=== PATIENT | female | born 1960 | race Caucasian/White ===

== ENCOUNTER 2017-11-19 16:40 | Observation (INO) | payer OTHER ==
[~2017-11-19] VITALS: Ht 172.7 cm; Wt 88.5 kg
[~2017-11-19 16:40] MED LIST: AUGMENTIN 875875 MG PO
[2017-11-19 17:01] LABS: ABSOLUTE BASOPHIL COUNT 0 /CUMM (0.0-0.2); ABSOLUTE EOSINOPHIL COUNT 0.1 /CUMM (0.0-0.7); ABSOLUTE GRANULOCYTE CT 6.5 /CUMM (1.4-6.5); ABSOLUTE LYMPH COUNT 2.2 /CUMM (1.2-3.4); ABSOLUTE MONOCYTE COUNT 0.5 /CUMM (0.10-0.60); BASOPHIL % 0.4 % (0.0-2.0); EOSINOPHIL % 0.6 % (0-5); GRANULOCYTE % 70.1 % (42.2-75.2); HEMATOCRIT 38.3 % (37-47); MEAN CORPUSCULAR HGB 30.3 PG (27.0-31.0); MEAN CORPUSCULAR HGB CONC 33.2 G/DL (33.0-37.0); MEAN CORPUSCULAR VOLUME 91.3 FL (81.0-99.0); MEAN PLATELET VOLUME 7.8 FL (7.4-10.4); PLATELET COUNT 235 /CUMM (130-400); RBC DISTRIBUTION WIDTH 14.3 % (11.5-14.5); WHITE BLOOD CELL COUNT 9.3 /CUMM (4.8-10.8)
--- NOTE | 2017-11-19 17:29 | ED GI/GU/ABDOMINAL COMPLAINT ---
History of Present Illness General Chief Complaint: General Adult Stated Complaint: MONALISA PÉREZ FOR GALLSTONES Source: patient Exam Limitations: no limitations Vital Signs & Intake/Output Vital Signs & Intake/Output Vital Signs Date Time Temp Pulse Resp B/P B/P Pulse O2 O2 Flow FiO2 Mean Ox Delivery Rate 11/19 2141 98.5 89 18 140/85 94 Room Air 11/19 1957 98.7 90 18 134/76 97 Room Air 11/19 1855 98.8 77 18 94/57 100 Room Air 11/19 1853 Room Air 11/19 1643 100.4 92 18 136/87 99 Room Air Room Air Allergies Uncoded Allergies: MOLD (UNKNOWN 08/23/12) Reconcile Medications Amoxicillin/Clavulanate Potass (Amox-Clav 875-125 MG Tablet) 875 MG-125 MG TABLET 1 TAB PO BID INFN Triage Note: PT TO ED WITH C/O UPPER ABD PAIN AND BACK PAIN, WENT TO DR PÉREZ HAD CT SCAN AND SENT IN FOR GALL STONES. Triage Nurses Notes Reviewed? yes ? N Is pt currently ? No Onset: Abrupt Duration: day(s): (5), constant, continues in ED Timing: recent history Quality/Severity: moderate, sharpness, severe Location: right upper quadrant Radiation: no radiation Activities at Onset: none No Modifying Factors: none HPI: 57-year-old female comes into the emergency room with complaints of upper abdominal pain and bilateral back pain. Since his been going on for the past 5 days. Some subjective fevers and chills. No vomiting. Nothing seems to make the symptoms better. She went to see her primary care doctor who did blood work and sent her for an outpatient CAT scan which showed gallstones and possible infection. She was sent in for further evaluation. (Ace Porter) Past History Travel History Traveled to [place] past 21 day No Medical History Any Pertinent Medical History? 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 No (Ace Porter) Review of Systems Review of Systems Constitutional: Reports: see HPI. EENTM: Reports: no symptoms. Respiratory: Reports: no symptoms. Cardiovascular: Reports: no symptoms. GI: Reports: see HPI. Genitourinary: Reports: no symptoms. Musculoskeletal: Reports: no symptoms. Skin: Reports: no symptoms. Neurological/Psychological: Reports: no symptoms. Hematologic/Endocrine: Reports: no symptoms. Immunologic/Allergic: Reports: no symptoms. All Other Systems: Reviewed and Negative (Ace Porter) Physical Exam Physical Exam General Appearance: well developed/nourished, alert, awake, mild distress Head: atraumatic, normal appearance Eyes: Bilateral: normal appearance. Ears, Nose, Throat, Mouth: hearing grossly normal, moist mucous membrane Neck: normal inspection Respiratory: normal breath sounds, no respiratory distress Cardiovascular: regular rate/rhythm Gastrointestinal: soft, tenderness (ruq) Back: normal inspection Extremities: normal range of motion Neurologic/Psych: awake, alert, oriented x 3, normal gait, normal mood/affect Core Measures ACS in differential dx? No Sepsis Present: No Sepsis Focused Exam Completed? No (Ace Porter) Progress Differential Diagnosis: appendicitis, cholecystitis, diverticulitis, gastritis, pancreatitis, PUD/GERD, UTI/pyelo Plan of Care: Orders Procedure Date/time Status Nothing by Mouth 11/20 B Active HEPATIC FUNCTION PANEL 11/20 0600 Active CBC WITHOUT DIFFERENTIAL 11/20 0600 Active BASIC ELECTROLYTES PLUS BUN&CR 11/20 0600 Active Pathway - chart 11/19 1941 Active Patient Data 11/19 1941 Active Code Status 11/19 1941 Active Code Status 11/19 1919 Complete ED Holding Orders 11/19 1859 Active Vital Signs 11/19 1859 Active Code Status 11/[address] in observation 11/19 1858 Active Add-on Test (ER Only) 11/19 1723 Active PARTIAL THROMBOPLASTIN TIME 11/19 1652 Complete PROTHROMBIN TIME 11/19 1652 Complete TYPE & SCREEN (NOT X-MATCH) 11/19 1652 Complete URINALYSIS 11/19 1649 Complete LIPASE 11/19 1649 Complete COMPREHENSIVE METABOLIC PANEL 11/19 1649 Complete CBC WITHOUT DIFFERENTIAL 11/19 1649 Complete AMYLASE 11/[address] in observation 11/19 UNK Active VTE Mechanical Prophylaxis 11/19 UNK Active Vital Signs 11/19 UNK Active Intake & Output 11/19 UNK Active Activity/Ambulation 11/19 UNK Active Current Medications Sig/Florin Start time Last Medication Dose Stop Time Status Admin Ampicillin Sodium/ 1,500 MG Q6 11/19 2359 AC Sulbactam Sodium (Unasyn) Sodium Chloride 100 ML (Normal Saline 0.9%) Heparin Sodium 5,000 UNIT Q8 11/19 2199 AC (Porcine) Hydromorphone HCl 0.5 MG Q3P PRN 11/19 1944 AC (Dilaudid) Hydromorphone HCl 1 MG Q3P PRN 11/19 1944 AC (Dilaudid) Ondansetron HCl 4 MG Q6-PRN PRN 11/19 1944 AC (Zofran) Acetaminophen 650 MG Q6PRN PRN 11/19 1929 AC (Tylenol) Dextrose/Sodium 1,000 ML .Q8H 11/19 193 AC 11/19 Chloride 2038 (D5W-1/2 Normal Saline 1000ML) Sodium Chloride 1,000 ML ONCE ONE 11/19 174 AC 11/19 (Normal Saline 0.9%) 11/20 0024 1811 Laboratory Tests 11/19/171948: Urine Color YEL, Urine Clarity CLEAR, Urine pH 6.5, Ur Specific [place] <= 1.005 , Urine Protein NEG, Urine Ketones NEG, Urine Nitrite NEG, Urine Bilirubin NEG, Urine Urobilinogen 0.2, Ur Leukocyte Esterase NEG, Ur Microscopic SEDIMENT EXAMINED, Urine RBC RARE, Urine WBC RARE, Ur Epithelial Cells FEW, Urine Hemoglobin TRACE-INTACT, Urine Glucose NEG 11/19/17 1652: Anion Gap 16, Estimated GFR > 60, BUN/Creatinine Ratio 17.1, Glucose 94, Calcium 9.3, Total Bilirubin 0.4, AST 17, ALT 28, Alkaline Phosphatase 84, Total Protein 7.6, Albumin 4.5, Globulin 3.1, Albumin/Globulin Ratio 1.5, Amylase 40, Lipase 54, PT 12.6 H, INR 1.20 H, APTT 34, CBC w Diff NO MAN DIFF REQ, RBC 4.20, MCV 91.3, MCH 30.3, RDW 14.3, MPV 7.8, Gran % 70.1, Lymphocytes % 23.7, Monocytes % 5.2, Eosinophils % 0.6, Basophils % 0.4, Absolute Granulocytes 6.5, Absolute Lymphocytes 2.2, Absolute Monocytes 0.5, Absolute Eosinophils 0.1, Absolute Basophils 0, PUBS MCHC 33.2 Diagnostic Imaging: Viewed by Me: Ultrasound. Discussed w/RAD: Ultrasound. Radiology Impression: PATIENT: PAXTON CALDERA PRESENT AGE: 57 PATIENT ACCOUNT NO: [id number] : 62 LOCATION: [facility] ORDERING PHYSICIAN: Ky Chen DO SERVICE DATE: 11/19/17 EXAM TYPE: US - US-LIMITED ABDOMEN EXAMINATION: US ABDOMEN LIMITED CLINICAL INFORMATION: Right upper quadrant pain. COMPARISON: CT scan abdomen pelvis 11/19 TECHNIQUE: Real-time imaging of the right upper quadrant abdominal viscera. Color Doppler exam used. FINDINGS: PANCREAS: Normal. LIVER: There are hepatic cysts. No suspicious liver lesions. The liver demonstrates normal size, contour and echogenicity. There is no intrahepatic biliary duct dilatation. GALLBLADDER: Gallstones within the gallbladder. Gallbladder wall is thickened measuring 0.7 cm. Positive ultrasound García's sign. Findings consistent with an acute cholecystitis. COMMON BILE DUCT: Mildly dilated in caliber measuring 0.7 cm in diameter. No stones seen in the duct. RIGHT KIDNEY: Normal. No hydronephrosis. No renal calculi or focal parenchymal lesions. The kidney measures 11.4 cm in maximum dimension. FREE FLUID: None. IMPRESSION: Cholelithiasis. Gallbladder wall thickening with positive ultrasound García's sign. Findings consistent with an acute cholecystitis. The common duct diameter is mildly prominent measuring 0.7 cm. No intrahepatic bile duct dilatation. 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 <Electronically signed in Other Vendor System> SIGNED BY: Onesimo Torres MD 11/19/171758 Initial ED EKG: none (Ace Porter) Departure Departure Disposition: STILL A PATIENT Condition: Stable Clinical Impression Primary Impression: Acute cholecystitis Referrals: Missy ISBELL,Jannie (PCP/Family) Departure Forms: Customer Survey General Discharge Information Observation Note Spoke With: Anum ISBELL,Jean Claude N. Physician Advisor Notified: SABINA ISBELL,KALPANA Nunn Place Patient In: Non-ED OBS Care Area Rationale for Observation: My rational for observation is as follows . Patient will require IV antibiotics. IV pain control. Surgery tomorrow. High risk. Medically not safe for discharge. (Ace Porter) PA/ADVISOR [employer] Co-Sign Statement Statement: ED Attending supervision documentation- [X] I saw and evaluated the patient. I have also reviewed all the pertinent lab results and diagnostic results. I agree with the findings and the plan of care as documented in the PA's/ADVISOR [employer]'s documentation. [X] I have reviewed the ED Record and agree with the PA's/AD[employer]'s documentation. [] Additions or exceptions (if any) to the PAs/ADVIS[employer]'s note and plan are summarized below: [PT IS HAVING ONGOING PAIN AND ACUTE FRANK. SHE WILL BE PLACED IN OBS AND WILL GO TO THE OR TOMORROW, IV PAIN CONTROL, IV ABX.] (Sabina ISBELL,Kalpana Nunn) Critical Care Note Critical Care Note Critical Care Time: 30-74 min (35) (Ace Porter)
[2017-11-19 17:51] LABS: PT 12.6 SEC (9.4-12.5); PTT 34 SEC (25-37)
--- NOTE | 2017-11-19 17:59 | ULTRASOUND REPORT ---
EXAMINATION: US ABDOMEN LIMITED CLINICAL INFORMATION: Right upper quadrant pain. COMPARISON: CT scan abdomen pelvis 11/19/2017 TECHNIQUE: Real-time imaging of the right upper quadrant abdominal viscera. Color Doppler exam used. FINDINGS: PANCREAS: Normal. LIVER: There are hepatic cysts. No suspicious liver lesions. The liver demonstrates normal size, contour and echogenicity. There is no intrahepatic biliary duct dilatation. GALLBLADDER: Gallstones within the gallbladder. Gallbladder wall is thickened measuring 0.7 cm. Positive ultrasound García's sign. Findings consistent with an acute cholecystitis. COMMON BILE DUCT: Mildly dilated in caliber measuring 0.7 cm in diameter. No stones seen in the duct. RIGHT KIDNEY: Normal. No hydronephrosis. No renal calculi or focal parenchymal lesions. The kidney measures 11.4 cm in maximum dimension. FREE FLUID: None. IMPRESSION: Cholelithiasis. Gallbladder wall thickening with positive ultrasound García's sign. Findings consistent with an acute cholecystitis. The common duct diameter is mildly prominent measuring 0.7 cm. No intrahepatic bile duct dilatation.
--- NOTE | 2017-11-19 19:18 | Admission Core Measures ---
Acute Coronary Syndrome (CM) ACS Core Measures Acute Coronary Syndrome Diagnosis No Congestive Heart Failure (NEW) CHF Core Measures Congestive Heart Failure Diagnosis No Cerebrovascular Accident (NEW) CVA Core Measures CVA/TIA Diagnosis No Venous Thromboembolism VTE Core Teresa (View Protocol) VTE Risk Factors Age>40 No Mechanical VTE Prophylaxis d/t N/A MechProphylax Ordered No VTE Pharm Prophylaxis d/t NA PharmProphylax ordered Problem List As ranked by this Provider includes Assessment & Plan 1. Acute cholecystitis HOME MEDS Home Med List Amoxicillin/Clavulanate Potass (Amox-Clav 875-125 MG Tablet) 875 MG-125 MG TABLET 1 TAB PO BID INFN
--- NOTE | 2017-11-19 22:20 | History & Physical Pre-Op ---
General Information and HPI History of Present Illness: CC: abdominal pain HPI: Otherwise healthy 57-year-old nondiabetic nonsmoker comes to the ER with 5 days of initially back pain which now is more in the front on the right side she said it started near the kidney first time pain like this its constant but somewhat relieved with IV analgesics until little worse on movement positioning in the stretcher she's had 2 C-sections no known relation to foods though she admits she likes cheese and had empanada a few days ago associated with nausea, no diarrhea ine day had sweats, no fevers no particular darkening of urine (ie iced tea) or lightening / loose stools (wienberg), no FHx of gallbladder problems. Otherwise no changes bowel habits, weight or appetite. I've reviewed the [facility]. No history of GERD, PUD, bleeding problems, heart disease or issues with anesthesia. Past surgical history C-sections family history no diabetes cancer there is a family history of asthma Allergies/Medications Allergies: Uncoded Allergies: MOLD (UNKNOWN 08/23/12) Home Med list Amoxicillin/Clavulanate Potass (Amox-Clav 875-125 MG Tablet) 875 MG-125 MG TABLET 1 TAB PO BID INFN Escitalopram Oxalate 20 MG TABLET 20 MG PO 0800 ANXIETY (Reported) Trazodone HCl 100 MG TABLET 100 MG PO NIGHT ANXIETY (Reported) Zolpidem Tartrate 10 MG TABLET 10 MG PO NIGHT SLEEP (Reported) Past History Medical History Neurological: NONE EENT: NONE Cardiovascular: NONE Respiratory: NONE Gastrointestinal: NONE Hepatic: NONE Renal: NONE Musculoskeletal: NONE Psychiatric: anxiety Endocrine: NONE Blood Disorders: NONE 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 Tetanus Vaccine: 08/21/14 Surgical History Pertinent Surgical History: (2) Past Family/Social History Psychosocial History ETOH Use: denies use Illicit Drug Use: denies illicit drug use Review of Systems Review of Systems: Constitutional: No fever, sweats or weight loss ENMT: No sore throat Cardiovascular: No chest pain, palpitations or leg swelling Respiratory: No shortness of breath, cough, or sputum or dyspnea on exertion GI: No GERD or bleeding per rectum : No dysuria or hematuria Musculoskeletal: No new muscle weakness, bone or joint pain Skin / Breast: No jaundice, rashes or itching Psychiatric: No history of drug or alcohol abuse no depression or anxiety Hematologic / lymphatic system: No problems with excessive bleeding, bruising, or blood clots Exam & Diagnostic Data Last 24 Hrs of Vital Signs/I&O I reviewed Vital Signs Date Time Temp Pulse Resp B/P B/P Pulse O2 O2 Flow FiO2 Mean Ox Delivery Rate 11/192 98.5 89 18 140/85 94 Room Air 11/19 1957 98.7 90 18 134/76 97 Room Air 11/19 1855 98.8 77 18 94/57 100 Room Air 11/194 Room Air 11/19 1643 100.4 92 18 136/87 99 Room Air Room Air Physical Exam: Constitutional: pleasant, no acute distress, conversant Eyes: sclera anicteric ENMT: ears and nose atraumatic, moist mucous membranes, good dentition, no lip lesions Neck: Supple, trachea is midline, no cervical or supraclavicular adenopathy and no palpable thyromegaly Cardiovascular: S1, S2, no murmurs, no peripheral edema Respiratory: clear to auscultation with normal respiratory effort and no intercostal retractions GI: abdomen soft, right upper quadrant tenderness, nondistended, no palpable hepatosplenomegaly Extremities / lymphatics: symmetrically warm, free range of motion no peripheral edema, no cervical, supraclavicular, axillary, or inguinal adenopathy Musculoskeletal: Did not evaluate gait and station, no digital cyanosis, good muscle strength and tone no atrophy, motor grossly 5 out of 5 throughout Skin: no jaundice, no rashes warm, nondiaphoretic, no areas of erythema or induration Psychiatric: mood and affect are appropriate and alert and oriented to person place and time Last 24 Hrs of Labs/Merrick: I reviewed Laboratory Tests 11/19/171948: Urine Color YEL, Urine Clarity CLEAR, Urine pH 6.5, Ur Specific [place] <= 1.005 , Urine Protein NEG, Urine Ketones NEG, Urine Nitrite NEG, Urine Bilirubin NEG, Urine Urobilinogen 0.2, Ur Leukocyte Esterase NEG, Ur Microscopic SEDIMENT EXAMINED, Urine RBC RARE, Urine WBC RARE, Ur Epithelial Cells FEW, Urine Hemoglobin TRACE-INTACT, Urine Glucose NEG 11/19/17 1652: Anion Gap 16, Estimated GFR > 60, BUN/Creatinine Ratio 17.1, Glucose 94, Calcium 9.3, Total Bilirubin 0.4, AST 17, ALT 28, Alkaline Phosphatase 84, Total Protein 7.6, Albumin 4.5, Globulin 3.1, Albumin/Globulin Ratio 1.5, Amylase 40, Lipase 54, PT 12.6 H, INR 1.20 H, APTT 34, CBC w Diff NO MAN DIFF REQ, RBC 4.20, MCV 91.3, MCH 30.3, RDW 14.3, MPV 7.8, Gran % 70.1, Lymphocytes % 23.7, Monocytes % 5.2, Eosinophils % 0.6, Basophils % 0.4, Absolute Granulocytes 6.5, Absolute Lymphocytes 2.2, Absolute Monocytes 0.5, Absolute Eosinophils 0.1, Absolute Basophils 0, PUBS MCHC 33.2 Assessment/Plan Assessment/Plan: I reviewed today's ultrasound and CT scan on PACS myself which shows a thickened gallbladder with stones, no obvious stones in duct on CT My impression is symptomatic gallstones. The story is typical, except you'd expect leukocytosis after 5 days of seemingly constant pain. The current standard of care is removal of the gallbladder laparoscopically, preferably not emergently. Once they become symptomatic, gallstones can lead to complications such as cholecystitis, pancreatitis and cholangitis and rarely others, her story does not have hints of this but we'll have to monitor this low -grade temp, she does have acute cholecystitis. More workup is not needed but we will get a preoperative labs including LFTs. I explained the nature and possibility of retained stones, and rarely, persistent postoperative diarrhea. I lesa a diagram illustrating how the stones cause problems and how the anatomy and inflammation can make the surgery more difficult, sometimes requiring an open procedure, and rarely to repair a bile duct injury leading to significant morbidity and even mortality. This in our practice is exceedingly rare, but other more common risks were also discussed such as infection, injury to other surrounding structures such as bowel and blood vessels. We also discussed the potential risks, benefits and alternatives to the procedure and surgery in general, issues that included but were not limited to, anesthetic risks hemorrhage requiring transfusion, the risk of transfusion itself, infection, heart attack, stroke, . As Ranked By This Provider Problem List: 1. Acute cholecystitis
[2017-11-19] MEDS ORDERED: ZOLPIDEM TARTRA10 M1 PO (22:36)
[2017-11-19] MEDS ORDERED: TRAZODONE HCL100 M1 PO (23:11)
[2017-11-19] MEDS ORDERED: ESCITALOPRAM OX20 MG PO (23:12)
[2017-11-20 07:03] VITALS: BP 132/68
[2017-11-20 07:54] LABS: ABSOLUTE BASOPHIL COUNT 0 /CUMM (0.0-0.2); ABSOLUTE EOSINOPHIL COUNT 0.1 /CUMM (0.0-0.7); ABSOLUTE GRANULOCYTE CT 5.6 /CUMM (1.4-6.5); ABSOLUTE LYMPH COUNT 0.6 /CUMM (1.2-3.4); ABSOLUTE MONOCYTE COUNT 0.2 /CUMM (0.10-0.60); BASOPHIL % 0.4 % (0.0-2.0); HEMATOCRIT 34.5 % (37-47); MEAN CORPUSCULAR HGB 30.6 PG (27.0-31.0); MEAN CORPUSCULAR HGB CONC 33.7 G/DL (33.0-37.0); MEAN PLATELET VOLUME 7.9 FL (7.4-10.4); PLATELET COUNT 186 /CUMM (130-400); RED BLOOD CELL CT 3.79 /CUMM (4.20-5.40); WHITE BLOOD CELL COUNT 6.6 /CUMM (4.8-10.8)
[2017-11-20 08:18] LABS: GRANULOCYTE % 85.3 % (42.2-75.2)
--- NOTE | 2017-11-20 10:17 | PN- General Surgery ---
Surgical Brief Attending Note Brief Attending Note: Patient seen and examined this morning her pain is better than yesterday she had a fever this morning of 102 no document no nausea she is on IV antibiotics we discussed the procedure again, the consent, the abdomen there Jehov[employer]es. I discussed the possibility of retained stones she may have one already may have passed, bilirubin is normal this morning but the AST ALT are mildly elevated I discussed the strategy I prefer to remove her very inflamed gallbladder first and monitor her afterwards she may need an ERCP.
[2017-11-20 14:00] VITALS: BP 126/64
--- NOTE | 2017-11-20 18:37 | PN- General Surgery ---
Subjective Subjective: Postop check: Patient comfortable postoperatively, groggy, complains of feeling "sore" in the abdominal region. She is tolerating clears, no nausea no vomiting. Objective Vital Signs and I&Os Vital Signs Date Time Temp Pulse Resp B/P B/P Pulse O2 O2 Flow FiO2 Mean Ox Delivery Rate 11/20 1400 97.8 86 20 126/64 95 Room Air 11/20 0703 102.2 61 20 132/68 92 Room Air 11/20 0524 102.2 11/20 0003 98.4 86 18 124/74 96 11/19 2142 98.5 89 18 140/85 94 Room Air 11/198 98.7 90 18 134/76 97 Room Air 11/19 1856 98.8 77 18 94/57 100 Room Air 11/19 1854 Room Air Intake & Output 11/20 1600 11/20 0800 11/20 0000 11/19 1600 11/19 0800 11/19 0000 Intake Total 1000 1100 1100 Output Total Balance 1000 1100 1100 Intake, IV 1000 1100 1100 Number 2 Bowel Movements Patient 195 lb 195 lb Weight Weight Reported by Patient Measurement Method Physical Exam: Well-developed well-nourished no apparent distress. HEENT: Atraumatic, extraocular motion intact Neck: Supple, no lymphadenopathy Respiratory: No respiratory distress Abdomen: Incisions clean dry and intact, dressings intact. tenderness as expected throughout the abdominal region and right upper quadrant. Extremities No edema, no calf pain Neuro: Alert and oriented x3 Psych: Mood affect normal, normal memory normal judgment. Skin: Warm and dry, no rash on exposed skin Results Last 48 Hours of Labs: Laboratory Tests 11/20 11/19 0645 1949 Chemistry Sodium (137 - 145 mmol/L) 142 Potassium (3.5 - 5.1 mmol/L) 3.7 Chloride (98 - 107 mmol/L) 103 Carbon Dioxide (22 - 30 mmol/L) 27 Anion Gap (5 - 16) 12 BUN (7 - 17 mg/dL) 8 Creatinine (0.5 - 1.0 mg/dL) 0.6 Estimated GFR (>60 ml/min) > 60 BUN/Creatinine Ratio (7 - 25 %) 13.3 Total Bilirubin (0.2 - 1.3 mg/dL) 0.7 Direct Bilirubin (< 0.4 mg/dL) 0.3 AST (14 - 36 U/L) 77 H ALT (9 - 52 U/L) 80 H Alkaline Phosphatase (<127 U/L) 117 Total Protein (6.3 - 8.2 g/dL) 6.2 L Albumin (3.5 - 5.0 g/dL) 3.6 Hematology CBC w Diff NO MAN DIFF REQ WBC (4.8 - 10.8 /CUMM) 6.6 RBC (4.20 - 5.40 /CUMM) 3.79 L Hgb (12.0 - 16.0 G/DL) 11.6 L Hct (37 - 47 %) 34.5 L MCV (81.0 - 99.0 FL) 91.0 MCH (27.0 - 31.0 PG) 30.6 RDW (11.5 - 14.5 %) 14.0 Plt Count (130 - 400 /CUMM) 186 MPV (7.4 - 10.4 FL) 7.9 Gran % (42.2 - 75.2 %) 85.3 H Lymphocytes % (20.5 - 51.1 %) 9.8 L Monocytes % (1.7 - 9.3 %) 3.5 Eosinophils % (0 - 5 %) 1.0 Basophils % (0.0 - 2.0 %) 0.4 Absolute Granulocytes (1.4 - 6.5 /CUMM) 5.6 Absolute Lymphocytes (1.2 - 3.4 /CUMM) 0.6 L Absolute Monocytes (0.10 - 0.60 /CUMM) 0.2 Absolute Eosinophils (0.0 - 0.7 /CUMM) 0.1 Absolute Basophils (0.0 - 0.2 /CUMM) 0 PUBS MCHC (33.0 - 37.0 G/DL) 33.7 Urines Urine Color (YEL,AMB,STR) YEL Urine Clarity (CLEAR) CLEAR Urine pH (5.0 - 8.0) 6.5 Ur Specific [place] (1.001 - 1.035) <= 1.005 Urine Protein (NEG,<30 MG/DL) NEG Urine Ketones (NEG) NEG Urine Nitrite (NEG) NEG Urine Bilirubin (NEG) NEG Urine Urobilinogen (0.1 - 1.0 EU/dl) 0.2 Ur Leukocyte Esterase (NEG) NEG Ur Microscopic SEDIMENT EXAMINED Urine RBC (0 - 5 /HPF) RARE Urine WBC (0 - 2 /HPF) RARE Ur Epithelial Cells (NONE,FEW) FEW Urine Hemoglobin (NEG) TRACE-INTACT Urine Glucose (N MG/DL) NEG 11/19 1652 Chemistry Sodium (137 - 145 mmol/L) 145 Potassium (3.5 - 5.1 mmol/L) 3.9 Chloride (98 - 107 mmol/L) 101 Carbon Dioxide (22 - 30 mmol/L) 27 Anion Gap (5 - 16) 16 BUN (7 - 17 mg/dL) 12 Creatinine (0.5 - 1.0 mg/dL) 0.7 Estimated GFR (>60 ml/min) > 60 BUN/Creatinine Ratio (7 - 25 %) 17.1 Glucose (65 - 99 mg/dL) 94 Calcium (8.4 - 10.2 mg/dL) 9.3 Total Bilirubin (0.2 - 1.3 mg/dL) 0.4 AST (14 - 36 U/L) 17 ALT (9 - 52 U/L) 28 Alkaline Phosphatase (<127 U/L) 84 Total Protein (6.3 - 8.2 g/dL) 7.6 Albumin (3.5 - 5.0 g/dL) 4.5 Globulin (1.9 - 4.2 gm/dL) 3.1 Albumin/Globulin Ratio (1.1 - 2.2 %) 1.5 Amylase (30 - 110 U/L) 40 Lipase (23 - 300 U/L) 54 Coagulation PT (9.4 - 12.5 SEC) 12.6 H INR (0.90 - 1.19) 1.20 H APTT (25 - 37 SEC) 34 Hematology CBC w Diff NO MAN DIFF REQ WBC (4.8 - 10.8 /CUMM) 9.3 RBC (4.20 - 5.40 /CUMM) 4.20 Hgb (12.0 - 16.0 G/DL) 12.7 Hct (37 - 47 %) 38.3 MCV (81.0 - 99.0 FL) 91.3 MCH (27.0 - 31.0 PG) 30.3 RDW (11.5 - 14.5 %) 14.3 Plt Count (130 - 400 /CUMM) 235 MPV (7.4 - 10.4 FL) 7.8 Gran % (42.2 - 75.2 %) 70.1 Lymphocytes % (20.5 - 51.1 %) 23.7 Monocytes % (1.7 - 9.3 %) 5.2 Eosinophils % (0 - 5 %) 0.6 Basophils % (0.0 - 2.0 %) 0.4 Absolute Granulocytes (1.4 - 6.5 /CUMM) 6.5 Absolute Lymphocytes (1.2 - 3.4 /CUMM) 2.2 Absolute Monocytes (0.10 - 0.60 /CUMM) 0.5 Absolute Eosinophils (0.0 - 0.7 /CUMM) 0.1 Absolute Basophils (0.0 - 0.2 /CUMM) 0 PUBS MCHC (33.0 - 37.0 G/DL) 33.2 Assessment/Plan Assessment/Plan Postop day 0 status Post laparoscopic cholecystectomy for acute cholecystitis Clears tonight, advance tomorrow Follow labs in a.m. including LFTs, an increase may require ERCP Continue postoperative antibiotics Pain medication as needed IV fluids until tolerating adequate by mouth. Ins and outs. Out of bed Heparin subcutaneous for DVT prophylaxis Continue 23 hour observation(pain control, need to follow lfts), likely discharge home tomorrow Core Measures Venous Thromboembolism VTE Risk Factors Age>40 No Mechanical VTE Prophylaxis d/t N/A MechProphylax Ordered No VTE Pharm Prophylaxis d/t NA PharmProphylax ordered
[2017-11-20] MEDS ORDERED: OXYCODONE HCL5 M1 PO (18:38)
[2017-11-20 18:42] VITALS: BP 142/86
--- NOTE | 2017-11-20 18:42 | Patient Discharge Instructions ---
Discharge Instructions General Discharge Information You were seen/treated for: Acute cholecystitis You had these procedures: Laparoscopic Cholecystectomy Watch for these problems: Worsening abdominal pain, nausea, fever, flulike illness, redness about the wounds or drainage from the wounds Do not soak the wound: Yes Daily wet to dry dressings: No No bath, but you may shower: Yes Other wound care: Change Band-Aids daily, Steri-Strips will fall off on their own, watch for any signs of redness or drainage from the incisions Special Instructions: Call for follow-up appointment for 1-2 weeks. Take pain medication as directed, as needed Low-fat diet Call the office with any concerns Diet Continue normal diet: No Recommended Diet: Low Fat Activity Full Activity/No Limits: No Activity Self Limited: Yes Pounds, do NOT lift more than: 10 (until follow-up appointment) Acute Coronary Syndrome Inclusion Criteria At DC or during hospital stay patient has or had the following: ACS DIAGNOSIS No Discharge Core Measures Meds if any: Prescribed or Continued at Discharge Meds if any: NOT Prescribed or Continued at Discharge Congestive Heart Failure Inclusion Criteria At DC or during hospital stay patient has or had the following: CHF DIAGNOSIS No Discharge Core Measures Meds if any: Prescribed or Continued at Discharge Meds if any: NOT Prescribed or Continued at Discharge Cerebrovascular accident Inclusion Criteria At DC or during hospital stay patient has or had the following: CVA/TIA Diagnosis No Discharge Core Measures Meds if any: Prescribed or Continued at Discharge Meds if any: NOT Prescribed or Continued at Discharge Venous thromboembolism Inclusion Criteria VTE Diagnosis No VTE Type NONE VTE Confirmed by (Test) NONE Discharge Core Measures - Per Current guidelines, there needs to be overlap - treatment for the first 5 days of Warfarin therapy. - If discharged on Warfarin prior to 5 days of - overlap therapy, the patient will need to be - assessed for post discharge needs including - *Post discharge parental anticoagulation - *Warfarin and/or parental anticoagulation education - *Follow up date to check INR post discharge At least 5 days overlap therapy as Inpatient No Meds if any: Prescribed or Continued at Discharge Note: Overlap Therapy is Warfarin and Anticoagulant Meds if any: NOT Prescribed or Continued at Discharge
[2017-11-20 22:07] VITALS: BP 116/64
[2017-11-21 07:05] VITALS: BP 102/52
[2017-11-21 07:12] VITALS: BP 122/68
--- NOTE | 2017-11-21 08:18 | PN- General Surgery ---
Subjective Subjective: Reports expected incisional discomfort. Tolerating clears. No nausea. "I'm hungry". Out of bed to bathroom. No dizziness. No shortness of breath. No chest pains. Voiding with some effort, but no dysuria. She anticipates going home later today if tolerating food, pain controlled with oral medication, and labs reviewed / downtrending lfts. Objective Vital Signs and I&Os Vital Signs Date Time Temp Pulse Resp B/P B/P Pulse O2 O2 Flow FiO2 Mean Ox Delivery Rate 11/21 0712 98.1 57 20 122/68 96 Room Air 11/21 0705 98.9 64 20 102/52 94 Room Air 11/20 2207 98.8 87 18 116/64 96 11/20 1842 98.1 84 18 142/86 97 11/20 1400 97.8 86 20 126/64 95 Room Air Intake & Output 11/21 1600 11/21 0800 11/21 0000 11/20 1600 11/20 0800 11/20 0000 Intake Total 883 579 6776 1100 1100 Output Total 400 400 Balance 139 402 4232 1100 1100 Intake, IV 935 584 8104 1100 1100 Intake, Oral 120 200 Number 2 Bowel Movements Output, Urine 400 400 Patient 195 lb 195 lb Weight Weight Reported by Patient Measurement Method Physical Exam: General - alert & oriented x 3. comfortable. no acute distress. Lungs - clear bilaterally. no w/r/r. Cardiac - s1s2. reg. Abdomen - soft. dressings c/d/i. expected issa-incisional tenderness. Extremities - warm bilaterally. no c/c/e. calves soft and nontender b/l. Current Medications: Current Medications Sig/Florin Start time Last Medication Dose Route Stop Time Status Admin Acetaminophen 1,000 MG .STK-MED ONE 11/20 1241 DC IV 11/20 1242 Acetaminophen 650 MG Q6PRN PRN 11/19 1929 AC 11/20 PO 0524 Ampicillin Sodium/ 1,500 MG Q6 11/19 2359 AC 11/21 Sulbactam Sodium IV 0611 Sodium Chloride 100 ML Dextrose/Sodium 1,000 ML .[id number] 11/19 1929 DC 11/20 Chloride IV 0527 Docusate Sodium 100 MG BID 11/21 1000 AC PO Fentanyl Citrate 250 MCG .STK-MED ONE 11/20 1240 DC IM 11/20 1241 Heparin Sodium 5,000 UNIT Q8 11/19 2200 AC 11/21 (Porcine) SC 0614 Hydromorphone HCl 2 MG .STK-MED ONE 11/20 1741 DC IM 11/20 1742 Hydromorphone HCl 2 MG .STK-MED ONE 11/20 1648 DC IM 11/20 1649 Hydromorphone HCl 2 MG .STK-MED ONE 11/20 1240 GA IM 11/20 1241 Hydromorphone HCl 0.5 MG Q3P PRN 11/19 194 GA 11/20 IV 1105 Hydromorphone HCl 1 MG Q3P PRN 11/19 194 11/21 IV 0310 Ketorolac 30 MG Q6-PRN PRN 11/20 2215 11/20 Tromethamine IV 2235 Meperidine HCl 50 MG .STK-MED ONE 11/20 1649 DC IM 11/20 1650 Midazolam HCl 2 MG .STK-MED ONE 11/20 1241 GA IM 11/20 1242 Ondansetron HCl 4 MG .STK-MED ONE 11/20 1241 GA IM 11/20 1242 Ondansetron HCl 4 MG Q6-PRN PRN 11/19 194 11/20 IV 1105 Oxycodone HCl 5 MG Q6-PRN PRN 11/20 164 11/21 PO 0629 Oxycodone HCl 10 MG Q6-PRN PRN 11/20 164 AC PO Trimethobenzamide HCl 200 MG .STK-MED ONE 11/20 1648 GA IM 11/20 1649 Zolpidem Tartrate 10 MG AT BEDTIME PRN 11/19 2315 11/20 PO 2235 Results Last 48 Hours of Labs: Laboratory Tests 11/20 11/19 0645 1949 Chemistry Sodium (137 - 145 mmol/L) 142 Potassium (3.5 - 5.1 mmol/L) 3.7 Chloride (98 - 107 mmol/L) 103 Carbon Dioxide (22 - 30 mmol/L) 27 Anion Gap (5 - 16) 12 BUN (7 - 17 mg/dL) 8 Creatinine (0.5 - 1.0 mg/dL) 0.6 Estimated GFR (>60 ml/min) > 60 BUN/Creatinine Ratio (7 - 25 %) 13.3 Total Bilirubin (0.2 - 1.3 mg/dL) 0.7 Direct Bilirubin (< 0.4 mg/dL) 0.3 AST (14 - 36 U/L) 77 H ALT (9 - 52 U/L) 80 H Alkaline Phosphatase (<127 U/L) 117 Total Protein (6.3 - 8.2 g/dL) 6.2 L Albumin (3.5 - 5.0 g/dL) 3.6 Hematology CBC w Diff NO MAN DIFF REQ WBC (4.8 - 10.8 /CUMM) 6.6 RBC (4.20 - 5.40 /CUMM) 3.79 L Hgb (12.0 - 16.0 G/DL) 11.6 L Hct (37 - 47 %) 34.5 L MCV (81.0 - 99.0 FL) 91.0 MCH (27.0 - 31.0 PG) 30.6 RDW (11.5 - 14.5 %) 14.0 Plt Count (130 - 400 /CUMM) 186 MPV (7.4 - 10.4 FL) 7.9 Gran % (42.2 - 75.2 %) 85.3 H Lymphocytes % (20.5 - 51.1 %) 9.8 L Monocytes % (1.7 - 9.3 %) 3.5 Eosinophils % (0 - 5 %) 1.0 Basophils % (0.0 - 2.0 %) 0.4 Absolute Granulocytes (1.4 - 6.5 /CUMM) 5.6 Absolute Lymphocytes (1.2 - 3.4 /CUMM) 0.6 L Absolute Monocytes (0.10 - 0.60 /CUMM) 0.2 Absolute Eosinophils (0.0 - 0.7 /CUMM) 0.1 Absolute Basophils (0.0 - 0.2 /CUMM) 0 PUBS MCHC (33.0 - 37.0 G/DL) 33.7 Urines Urine Color (YEL,AMB,STR) YEL Urine Clarity (CLEAR) CLEAR Urine pH (5.0 - 8.0) 6.5 Ur Specific [place] (1.001 - 1.035) <= 1.005 Urine Protein (NEG,<30 MG/DL) NEG Urine Ketones (NEG) NEG Urine Nitrite (NEG) NEG Urine Bilirubin (NEG) NEG Urine Urobilinogen (0.1 - 1.0 EU/dl) 0.2 Ur Leukocyte Esterase (NEG) NEG Ur Microscopic SEDIMENT EXAMINED Urine RBC (0 - 5 /HPF) RARE Urine WBC (0 - 2 /HPF) RARE Ur Epithelial Cells (NONE,FEW) FEW Urine Hemoglobin (NEG) TRACE-INTACT Urine Glucose (N MG/DL) NEG 11/19 1652 Chemistry Sodium (137 - 145 mmol/L) 145 Potassium (3.5 - 5.1 mmol/L) 3.9 Chloride (98 - 107 mmol/L) 101 Carbon Dioxide (22 - 30 mmol/L) 27 Anion Gap (5 - 16) 16 BUN (7 - 17 mg/dL) 12 Creatinine (0.5 - 1.0 mg/dL) 0.7 Estimated GFR (>60 ml/min) > 60 BUN/Creatinine Ratio (7 - 25 %) 17.1 Glucose (65 - 99 mg/dL) 94 Calcium (8.4 - 10.2 mg/dL) 9.3 Total Bilirubin (0.2 - 1.3 mg/dL) 0.4 AST (14 - 36 U/L) 17 ALT (9 - 52 U/L) 28 Alkaline Phosphatase (<127 U/L) 84 Total Protein (6.3 - 8.2 g/dL) 7.6 Albumin (3.5 - 5.0 g/dL) 4.5 Globulin (1.9 - 4.2 gm/dL) 3.1 Albumin/Globulin Ratio (1.1 - 2.2 %) 1.5 Amylase (30 - 110 U/L) 40 Lipase (23 - 300 U/L) 54 Coagulation PT (9.4 - 12.5 SEC) 12.6 H INR (0.90 - 1.19) 1.20 H APTT (25 - 37 SEC) 34 Hematology CBC w Diff NO MAN DIFF REQ WBC (4.8 - 10.8 /CUMM) 9.3 RBC (4.20 - 5.40 /CUMM) 4.20 Hgb (12.0 - 16.0 G/DL) 12.7 Hct (37 - 47 %) 38.3 MCV (81.0 - 99.0 FL) 91.3 MCH (27.0 - 31.0 PG) 30.3 RDW (11.5 - 14.5 %) 14.3 Plt Count (130 - 400 /CUMM) 235 MPV (7.4 - 10.4 FL) 7.8 Gran % (42.2 - 75.2 %) 70.1 Lymphocytes % (20.5 - 51.1 %) 23.7 Monocytes % (1.7 - 9.3 %) 5.2 Eosinophils % (0 - 5 %) 0.6 Basophils % (0.0 - 2.0 %) 0.4 Absolute Granulocytes (1.4 - 6.5 /CUMM) 6.5 Absolute Lymphocytes (1.2 - 3.4 /CUMM) 2.2 Absolute Monocytes (0.10 - 0.60 /CUMM) 0.5 Absolute Eosinophils (0.0 - 0.7 /CUMM) 0.1 Absolute Basophils (0.0 - 0.2 /CUMM) 0 PUBS MCHC (33.0 - 37.0 G/DL) 33.2 Assessment/Plan Assessment/Plan This 57 year old female with hx anxiety is POD#1 s/p laparoscopic cholecystectomy for acute cholecystitis, transaminitis pre-op awaiting post-op lfts tolerating clears. d/c iv fluids. low fat diet for lunch pending lfts percocet / toradol prn pain control add colace BID f/u lfts oob/ambulation encouraged hep sc - dvt ppx d/c home today pending lfts, tolerating food, pain controlled will d/w placed in observation status initially, which continues given anticipation of discharge later today Core Measures Venous Thromboembolism VTE Risk Factors Age>40 No Mechanical VTE Prophylaxis d/t N/A MechProphylax Ordered No VTE Pharm Prophylaxis d/t NA PharmProphylax ordered
[2017-11-21] MEDS ORDERED: DOCUSATE SODIU100 M3 PO (08:28)
[2017-11-21] MEDS ORDERED: OXYCODONE HCL5 M1 PO (08:28)
--- NOTE | 2017-11-21 09:23 | Operative Report ---
Operative/Inv Procedure Report Surgery Date: 11/20/17 Name of Procedure: Laparoscopic cholecystectomy Pre-Operative Diagnosis: Acute cholecystitis Post-Operative Diagnosis: Same Estimated Blood Loss: scant Surgeon/Clay Burner: Anum ISBELL,Jean Claude THOMAS Anesthesia: general endotracheal tube Operative/Procedure Note Note: Patient was positioned supine. After successful induction of general anesthesia, the patient's abdomen was clipped, prepped and draped in the usual sterile fashion. Local anesthetic was injected at the top of the umbilicus and then a curved horizontal incision little over a centimeter was made there with a 15 blade and then deepened to the midline fascia which was incised vertically a little over a centimeter. Both sides were secured with 0 Vicryl stay sutures and then the thin peritoneal layer was entered, 10 mm Hernández trocar inserted obliquely to the right, and the gas was turned on to 15 mm. After insufflation and repositioning to reverse Trendelenburg, 3 more dissecting 5 mm trochars were placed in the right subcostal area, first lateral, then mid-subcostal, then subxiphoid. The gallbladder was very thick-walled refers to decompress it with a needle that was like water, a hydrops then we were able to jig operator the fundus from the lateral port and retracted up over the edge of the liver and then we dissected out the area of the triangle of Calot while retracting the infundibulum caudally / laterally. First the cystic duct was identified, isolated at the neck, clipped 3 times, divided after the second clip and then in similar fashion the cystic artery was identified medially, dissected and divided. Then the gallbladder was from the liver bed using cautery then lowered into an Endobag and removed through the umbilical incision. The instruments and then the trochars were removed letting the gas escape. The fascial incision was closed with a figure 8 Vicryl then all 4 skin incisions were closed with interrupted subcuticular 4-0 Monocryl, followed by Mastisol Steri-Strips and Bandaids. Estimated blood loss was minimal, lap and sponge counts were correct, wound expectancy was clean-contaminated, IV fluids crystalloid, complications none, patient tolerated the procedure well and was returned to the recovery room in satisfactory condition.
[2017-11-21 09:45] LABS: ABSOLUTE BASOPHIL COUNT 0 /CUMM (0.0-0.2); ABSOLUTE EOSINOPHIL COUNT 0 /CUMM (0.0-0.7); ABSOLUTE GRANULOCYTE CT 7.3 /CUMM (1.4-6.5); ABSOLUTE LYMPH COUNT 1.1 /CUMM (1.2-3.4); ABSOLUTE MONOCYTE COUNT 0.4 /CUMM (0.10-0.60); BASOPHIL % 0.2 % (0.0-2.0); EOSINOPHIL % 0 % (0-5); GRANULOCYTE % 82.8 % (42.2-75.2); HEMATOCRIT 32.9 % (37-47); MEAN CORPUSCULAR HGB 30.3 PG (27.0-31.0); MEAN CORPUSCULAR HGB CONC 32.8 G/DL (33.0-37.0); MEAN CORPUSCULAR VOLUME 92.2 FL (81.0-99.0); MEAN PLATELET VOLUME 8.3 FL (7.4-10.4); PLATELET COUNT 199 /CUMM (130-400); RBC DISTRIBUTION WIDTH 13.6 % (11.5-14.5); RED BLOOD CELL CT 3.57 /CUMM (4.20-5.40); WHITE BLOOD CELL COUNT 8.8 /CUMM (4.8-10.8)
== END 2017-11-21 13:36 ==
LOC: ERH 16:40 → ERHI 18:58 → 1NO 18:58 → ENRESERV 23:01 → 1NO 11-20 00:33 → ENTRNSPT 11-20 17:49 → EDTRNSPTSTS 11-20 17:50 → CMPTRNSPT 11-20 18:18 → 1NO 11-20 20:19 → ENPENDDIS 11-21 08:31 → ENTRNSPT 11-21 13:11 → EDTRNSPT 11-21 13:12 → EDTRNSPTSTS 11-21 13:30 → 1NO 11-21 13:36 → CMPTRNSPT 11-21 13:49
PROVIDERS: Emergency Medicine; Physician Assistant Surgical
DX: K80.12 Calculus of gallbladder with acute and chronic cholecystitis without obstruction (principal); Z85.828 Personal history of other malignant neoplasm of skin; F41.9 Anxiety disorder, unspecified
CPT/HCPCS: 36415; 81001; 82436; 96361; 96372; 96374; 96375; 96376; G0378; J0131; J1644; J1885; J2405; J3250; J7042